=== PATIENT | female | born 1935 | race Caucasian/White ===

== ENCOUNTER 2018-01-30 13:49 | Emergency (ER) | payer MEDICARE, OTHER, MEDICAID ==
[2018-01-30] MEDS: LIDOCAINE 1% (MDV) 10 ML INJ INJ (15:15)
== END 2018-01-30 16:03 | disposition home or self-care (01) ==
LOC: FTE 13:49
DX: S80.12XA Contusion of left lower leg, initial encounter (principal); I10 Essential (primary) hypertension; W22.8XXA Striking against or struck by other objects, initial encounter; Y92.9 Unspecified place or not applicable; Z79.01 Long term (current) use of anticoagulants
CPT/HCPCS: 10140; 99283-25